=== PATIENT | male | born 1990 | race Caucasian/White ===

== ENCOUNTER 2022-07-10 12:00 | Emergency (ER) | payer BC, OTHER ==
[2022-07-10 12:07] VITALS: BP 129/70; PULSE 57; RESP 16; TEMP 97.6
[2022-07-10] MEDS ORDERED: LIDOCAINE 1% INJ 10MG/ML (20 ML MDV) SQ STA (12:36)
--- NOTE | 2022-07-10 12:39 | ED ---
Wound/Laceration HPI - General Chief Complaint: Wound/Laceration Stated Complaint: Lt hand injury Time Seen by Provider: 07/10/22 12:23 Source: patient, RN notes reviewed Mode of arrival: ambulatory Limitations: no limitations - History of Present Illness Initial Comments: Patient is a 32-year-old male presents the emergency room with complaints of cutting the medial aspect of right pinky. He reports that he was coming about loop with a sharp non-serrated blade when he slipped and sliced his hand. He denies any range of motion impairment. He denies depth of laceration invading the bone space or joint space. He reports that his tetanus vaccine is up-to-date. - Related Data Home Medications Medication Instructions Recorded Confirmed No Known Home Medications 01/18/16 01/18/16 Allergies Allergy/AdvReac Type Severity Reaction Status Date / Time Sulfa (Sulfonamide Allergy Unknown Verified 07/10/22 12:07 Antibiotics) Childhood Review of Systems ROS Statement: Those systems with pertinent positive or pertinent negative responses have been documented in the HPI. ROS Other: All systems not noted in ROS Statement are negative. Past Medical History Past Medical History: No Reported History History of Any Multi-Drug Resistant Organisms: None Reported Past Surgical History: No Surgical Hx Reported Past Psychological History: No Psychological Hx Reported Past Alcohol Use History: Rare Past Drug Use History: None Reported General Exam Limitations: no limitations General appearance: alert, in no apparent distress Head exam: Present: atraumatic, normocephalic, normal inspection Eye exam: Present: normal appearance, PERRL, EOMI. Absent: scleral icterus, conjunctival injection, periorbital swelling ENT exam: Present: normal exam Neck exam: Present: normal inspection Respiratory exam: Absent: respiratory distress, accessory muscle use Extremities exam: Absent: pedal edema Left Hand Wrist exam: Present: full ROM, laceration (Medial aspect of base of fifth digit approximately 2 cm in length.). Absent: swelling, ecchymosis, deformity, crepitus, dislocation, amputation, nail avulsion Vascular: Absent: vascular compromise Back exam: Present: normal inspection Neurological exam: Present: alert, oriented X3, CN II-XII intact Psychiatric exam: Present: normal affect, normal mood Skin exam: Present: other (laceration as above) Course Vital Signs 07/10/22 12:03 Temperature 97.6 F Pulse Rate 57 L Respiratory 16 Rate Blood Pressure 129/70 O2 Sat by Pulse 99 Oximetry Procedures - Laceration Laceration #1 Consent Obtained: verbal consent Indication: laceration Site: hand Size (cm): 3 Description: linear Depth: simple, single layer Anesthetic Used: lidocaine 1% Anesthesia Technique: local infiltration Pre-repair: wound explored, irrigated extensively Type of Sutures: nylon Size of Sutures: 4-0 Number of Sutures: 5 Technique: simple, interrupted Patient Tolerated Procedure: well, no complications Medical Decision Making - Medical Decision Making Overall no indication for need for diagnostic imaging or laboratory studies. X- ray offered and declined. We'll close laceration with sutures. No need for antibiotic therapy. Tetanus shot up-to-date. Laceration closed with 5 nylon sutures 4-0 without complications. Wound care instructions given. As stated above tetanus up-to-date no need for antibiotic therapy. Will discharge home with follow-up with his primary care provider advised to return to the emergency room if any signs or symptoms of infection or wound reopened. Case discussed with Dr. Saravia Disposition Clinical Impression: Laceration Disposition: HOME SELF-CARE Condition: Stable Instructions (If sedation given, give patient instructions): Care For Your Stitches (DC), Laceration (ED) Additional Instructions: Please continue localized wound care keeping wound clean and dry. Please have sutures removed in 7-10 days. If any signs or symptoms of infection including any abnormal drainage, wound opening, redness, fevers or chills please return to the emergency room or seek medical care as appropriate. Please return to the Emergency Department if symptoms worsen or any other concerns. Is patient prescribed a controlled substance at d/c from ED?: No Referrals: Everette Chaparro MD [Primary Care Provider] - 1-2 days Time of Disposition: 13:08
== END 2022-07-10 13:40 | disposition home or self-care (01) ==
LOC: EC 12:00
DX: S61.412A Laceration without foreign body of left hand, initial encounter (principal); Z88.2 Allergy status to sulfonamides; W26.0XXA Contact with knife, initial encounter
CPT/HCPCS: 99283; 12002; J2001

== ENCOUNTER → 2023-03-31 | Outpatient (CLI) | payer BC ==
--- NOTE | 2023-03-31 11:13 | XR ---
EXAMINATION TYPE: XR shoulder complete RT DATE OF EXAM: 03/31/2023 11:00 AM INDICATION: Patient age:Male; 33 years old; Reason for study: M25.511 Acute pain right shoulder; COMPARISON: None TECHNIQUE: The right shoulder was examined in AP, internally rotated and scapular Y projections. FINDINGS: No evidence of acute osseous pathology, joint dislocation, or soft tissue swelling. The remaining por tions of the visualized chest are unremarkable. IMPRESSION: No acute osseous pathology.
== END | disposition home or self-care (01) ==
LOC: RADXRMAIN 10:39
PROVIDERS: ATTEND Nurse Practitioner Women's Health
DX: M25.511 Pain in right shoulder (principal)

== ENCOUNTER 2024-11-25 20:46 | Emergency (ER) | payer BC ==
[2024-11-25 21:10] VITALS: TEMP 98.1
--- NOTE | 2024-11-25 21:14 | ED ---
Wound/Laceration HPI - General Chief Complaint: Wound/Laceration Stated Complaint: Rt hand Laceration Time Seen by Provider: 11/25/24 21:00 Source: patient, RN notes reviewed Mode of arrival: ambulatory Limitations: no limitations - History of Present Illness Initial Comments: This is a 35-year-old male presenting with right ring finger laceration 1 hour ago. Patient states he accidentally cut his finger on a spaghetti-O lid with significant bleeding afterwards. Patient states he is up-to-date with his tetanus vaccination. Denies other injury or use of blood thinners. Onset/Timin -: hour(s) Extremity Location: Right: Hand Place: home Patient Tetanus UTD: Yes Context: accidental - Related Data Previous Rx's Medication Instructions Recorded Cephalexin [Keflex] 500 mg PO Q8HR 7 Days #21 cap 07/24/22 Allergies Allergy/AdvReac Type Severity Reaction Status Date / Time Sulfa (Sulfonamide Allergy Unknown Verified 11/25/24 21:10 Antibiotics) Childhood Review of Systems ROS Statement: Those systems with pertinent positive or pertinent negative responses have been documented in the HPI. ROS Other: All systems not noted in ROS Statement are negative. Past Medical History Past Medical History: No Reported History History of Any Multi-Drug Resistant Organisms: None Reported Past Surgical History: No Surgical Hx Reported Past Psychological History: No Psychological Hx Reported Past Alcohol Use History: Rare Past Drug Use History: None Reported General Exam General appearance: alert, in no apparent distress Head exam: Present: atraumatic, normocephalic, normal inspection Eye exam: Present: normal appearance, PERRL, EOMI. Absent: scleral icterus, conjunctival injection, periorbital swelling ENT exam: Present: normal exam, mucous membranes moist Neck exam: Present: normal inspection. Absent: tenderness, meningismus, lymphadenopathy Respiratory exam: Present: normal lung sounds bilaterally. Absent: respiratory distress, wheezes, rales, rhonchi, stridor Cardiovascular Exam: Present: regular rate, normal rhythm, normal heart sounds. Absent: systolic murmur, diastolic murmur, rubs, gallop, clicks GI/Abdominal exam: Present: soft, normal bowel sounds. Absent: distended, tenderness, guarding, rebound, rigid Extremities exam: Present: normal inspection, full ROM, normal capillary refill. Absent: tenderness, pedal edema, joint swelling, calf tenderness Back exam: Present: normal inspection Neurological exam: Present: alert, oriented X3, CN II-XII intact Psychiatric exam: Present: normal affect, normal mood Skin exam: Present: warm, dry, intact, normal color, other (Right ring finger 4 cm linear laceration on ulnar aspect. Negative active bleeding, foreign body. Distal neurovascular and motor function intact. Capillary refill less than 2 seconds.). Absent: rash Course Vital Signs 11/25/24 21:06 Temperature 98.1 F Pulse Rate 69 Respiratory 18 Rate Blood Pressure 124/61 O2 Sat by Pulse 96 Oximetry Procedures - Laceration Laceration #1 Consent Obtained: verbal consent Indication: laceration Site: hand Size (cm): 4 Description: linear Depth: simple, single layer Sedation/Analgesia: none Anesthetic Used: lidocaine 1% Anesthesia Technique: nerve block Amount (mls): 3 Pre-repair: irrigated extensively Type of Sutures: nylon Size of Sutures: 5-0 Technique: running Patient Tolerated Procedure: well Medical Decision Making - Medical Decision Making Was pt. sent in by a medical professional or institution ([facility], [facility], urgent care, hospital, or custodial...) When possible be specific @ -[No] Did you speak to anyone other than the patient for history (EMS, parent, family, police, friend...)? What history was obtained from this source @ -[No] Did you review nursing and triage notes (agree or disagree)? Why? @ -[I reviewed and agree with nursing and triage notes] Were old charts reviewed (outside hosp., previous admission, EMS record, old EKG, old radiological studies, urgent care reports/EKG's, custodial records)? Report findings @ -[No old charts were reviewed] Differential Diagnosis (chest pain, altered mental status, abdominal pain women, abdominal pain men, vaginal bleeding, weakness, fever, dyspnea, syncope, headache, dizziness, GI bleed, back pain, seizure, CVA, palpatations, mental health, musculoskeletal)? @ -Finger laceration, cellulitis, tetanus, foreign body, nerve/tendon damage EKG interpreted by me (3pts min.). @ -Not done X-rays interpreted by me (1pt min.). @ -Hand x-ray shows no fracture or foreign body CT interpreted by me (1pt min.). @ -[None done] U/S interpreted by me (1pt. min.). @ -[None done] What testing was considered but not performed or refused? (CT, X-rays, U/S, labs)? Why? @ -[None] What meds were considered but not given or refused? Why? @ -Considered tetanus vaccination as patient was not completely sure of last tetanus but patient ultimately declined offer. Did you discuss the management of the patient with other professionals (professionals i.e. , PA, [facility], lab, RT, psych nurse, social service technician, salesperson driver, teacher, radiation officer, medical case worker)? Give summary @ -[No] Was smoking cessation discussed for >3mins.? @ -[No] Was critical care preformed (if so, how long)? @ -[No] Were there social determinants of health that impacted care today? How? (Homelessness, low income, unemployed, alcoholism, drug addiction, transportation, low edu. Level, literacy, decrease access to med. care, [facility], rehab)? @ -[No] Was there de-escalation of care discussed even if they declined (Discuss DNR or withdrawal of care, Hospice)? DNR status @ -[No] What co-morbidities impacted this encounter? (DM, HTN, Smoking, COPD, CAD, Cancer, CVA, ARF, Chemo, Hep., AIDS, mental health diagnosis, sleep apnea, morbid obesity)? @ -[None] Was patient admitted / discharged? Hospital course, mention meds given and route, prescriptions, significant lab abnormalities, going to OR and other pertinent info. @ -[hospital course] Undiagnosed new problem with uncertain prognosis? @ -[No] Drug Therapy requiring intensive monitoring for toxicity (Heparin, Nitro, Insulin, Cardizem)? @ -[No] Were any procedures done? @ -Suturing finger Diagnosis/symptom? @ -Finger laceration Acute, or Chronic, or Acute on Chronic? @ -Acute Uncomplicated (without systemic symptoms) or Complicated (systemic symptoms)? @ -Uncomplicated Side effects of treatment? @ -[No] Exacerbation, Progression, or Severe Exacerbation? @ -[No] Poses a threat to life or bodily function? How? (Chest pain, [place], [place], pneumonia, PE, COPD, DKA, ARF, appy, cholecystitis, CVA, Diverticulitis, Homicidal, Suicidal, threat to staff... and all critical care pts) @ -[No] Disposition Clinical Impression: Laceration Disposition: HOME SELF-CARE Condition: Good Instructions (If sedation given, give patient instructions): Care For Your Stitches (ED) Is patient prescribed a controlled substance at d/c from ED?: No Referrals: Stoney Cruz Jr, DO [Primary Care Provider] - 1-2 days Time of Disposition: 22:18
[2024-11-25] MEDS: LIDOCAINE 1% INJ 10MG/ML (20 ML MDV) SQ ONE (21:32)
--- NOTE | 2024-11-25 21:35 | XR ---
EXAMINATION TYPE: XR hand limited RT DATE OF EXAM: 11/25/2024 9:31 PM COMPARISON: None CLINICAL INDICATION: Male, 34 years old with history of Fourth digit laceration; PHH, pain TECHNIQUE: XR hand limited RT 2 views were obtained. FINDINGS: Soft tissue edema involving the fourth digit with bandage in place. No evidence of fracture . No evidence of radiopaque foreign body. No significant degeneration. IMPRESSION: Soft tissue injury to the fourth digit, no evidence for radiopaque foreign body. No evidence for frac ture. [facility], , 11/25/2024 9:33 PM
[2024-11-25 22:32] VITALS: BP 128/85; PULSE 67; RESP 16
== END 2024-11-25 22:30 | disposition home or self-care (01) ==
LOC: EC 20:46
DX: S61.214A Laceration without foreign body of right ring finger without damage to nail, initial encounter (principal); Z88.2 Allergy status to sulfonamides; W26.8XXA Contact with other sharp object(s), not elsewhere classified, initial encounter
CPT/HCPCS: 73120; 99283; 12002; J2003